=== PATIENT | male | born 1950 | race Caucasian/White ===

== ENCOUNTER 2017-05-20 17:05 | Observation (INO) | payer OTHER ==
[~2017-05-20] VITALS: Ht 175.3 cm; Wt 94.5 kg
[~2017-05-20 17:05] MED LIST: CIPR-255 PO; CLOP1TAB15 PO; EMPA1TAB3 PO; GLC500 PO; INSDGI SC; MAGN250T3 PO; RANI150T3 PO; VERA120T15 PO
--- NOTE | 2017-05-20 19:12 | DIAGNOSTIC IMAGING REPORT ---
SINGLE VIEW CHEST CLINICAL HISTORY: Atypical chest pain. Dyspnea. FINDINGS: An AP, portable, upright chest radiograph is obtained. No prior studies are available for comparison at the time of dictation. The examination is degraded by portable technique and patient rotation. The heart is top normal for projection. The pulmonary vascular is noncongested. There is left basilar consolidation and a small left pleural effusion. The right lung appears clear. No pneumothorax is seen. The skeletal structures are osteopenic. Degenerative change is noted in the thoracic spine. IMPRESSION: There is left basilar consolidation and a small left pleural effusion. The appearance is typical for pneumonia. Clinical correlation will be required and radiographic follow-up to resolution is recommended. Electronically signed by: Simone Serra M.D. 05/20/2017 7:11 PM Dictated Date/Time: 05/20/2017 7:10 PM
[2017-05-20] MEDS ORDERED: OPTIRAY 320 IV PRN (19:15)
[2017-05-20 19:22] LABS: ISTAT CREATININE 0.8 mg/dl (0.6-1.3); ISTAT IONIZED CALCIUM 1.18 mmol/l (1.12-1.32); ISTAT POTASSIUM 4.7 mEq/L (3.3-5.0)
[2017-05-20 19:37] LABS: BASO % 0.3 %; BASO ABS # 0.02 K/uL (0-0.2); EOS % 0.1 %; EOS ABS # 0.01 K/uL (0-0.5); HEMATOCRIT 49.3 % (42-52); HEMOGLOBIN 16.5 g/dL (14.0-18.0); IG# 0.04 K/uL (0.00-0.02); LYMPH % 13.3 %; LYMPH ABS # 0.99 K/uL (1.2-3.4); MEAN CELL VOLUME 82.7 fL (80-100); MEAN CORPUSCULAR HEMOGLOBIN 27.7 pg (25-34); MEAN CORPUSCULAR HGB CONC 33.5 g/dl (32-36); MEAN PLATELET VOLUME 10.6 fL (7.4-10.4); MONO % 1.3 %; NEUT % 84.5 %; NEUT ABS # 6.26 K/uL (1.4-6.5); PLATELET COUNT 182 K/uL (130-400); RED CELL DISTRIBUTION WIDTH CV 14.4 % (11.5-14.5); RED CELL DISTRIBUTION WIDTH SD 43.6 fL (36.4-46.3); WHITE BLOOD COUNT 7.42 K/uL (4.8-10.8)
[2017-05-20] MEDS ORDERED: EMPA1TAB PO (19:38)
[2017-05-20] MEDS ORDERED: RANI150T2 PO (19:38)
[2017-05-20] MEDS ORDERED: METF-384 PO (19:38)
[2017-05-20] MEDS ORDERED: RBX500 PO (19:39)
[2017-05-20] MEDS ORDERED: HYDR-5688 PO (19:41)
[2017-05-20 19:44] LABS: BLOOD UREA NITROGEN 23 mg/dl (7-18); CALCIUM 9.1 mg/dl (8.5-10.1); CARBON DIOXIDE 25 mmol/L (21-32); GLUCOSE 278 mg/dl (70-99); POTASSIUM 4.6 mmol/L (3.5-5.1); SODIUM 134 mmol/L (136-145)
[2017-05-20 19:47] LABS: PTT PATIENT 27.5 SECONDS (21.0-31.0)
--- NOTE | 2017-05-20 20:18 | DIAGNOSTIC IMAGING REPORT ---
CT ANGIOGRAM OF THE CHEST CLINICAL HISTORY: Dyspnea. Reported history of recent shoulder surgery. COMPARISON STUDY: Chest x-ray dated 05/20/2017. TECHNIQUE: Following the IV administration of 90 cc of Optiray 320, CT angiogram of the chest was performed from the upper abdomen to the thoracic inlet utilizing the pulmonary embolus protocol. Images are reviewed in the axial, sagittal, and coronal planes. 3-D MIPS images are created and assessed. IV contrast was administered without complication. A dose lowering technique was utilized adhering to the principles of ALARA. The examination is degraded by motion artifact, as well as by streak artifact from the left arm which could not be elevated above the chest. CT DOSE: 639.99 mGy.cm FINDINGS: Thyroid: Imaged portions of the thyroid gland are normal in size and attenuation. Thoracic aorta: The thoracic aorta is normal in caliber and demonstrates bovine variant arch anatomy. No dissection is seen. Pulmonary vasculature: The pulmonary trunk is normal in caliber. There are no filling defects identified in main, lobar, or segmental pulmonary branches to suggest pulmonary embolus. Heart: The heart is enlarged and without pericardial effusion. The coronary arteries are densely calcified. Lungs and pleural spaces: There is dense airspace consolidation evaluation of the lung parenchyma is modestly degraded by motion artifact. Volume loss is seen at the left lung base. Linear atelectasis is present the right lung base. Mediastinum: There is no mediastinal lymphadenopathy. Paige: Clear. Axillae: There is no axillary lymphadenopathy. Upper abdomen: The liver is steatotic. A small hiatal hernia is identified. Skeletal structures: The skeletal structures are osteopenic. Degenerative change and hyperkyphosis are noted in the thoracic spine. Arthritic change is seen in the shoulders. Foci of subcutaneous gas and soft tissue swelling is present overlying the left shoulder, and likely related to recent surgery. No lytic or blastic bony lesions are seen. IMPRESSION: 1. There is no evidence of pulmonary embolus in the main, lobar, or segmental pulmonary arteries. 2. There is volume loss and dense consolidative change identified at the left lung base. This likely represents segmental atelectasis. Superimposed pneumonia is not excluded. Clinical correlation will be required. 3. Cardiomegaly. 4. Soft tissue induration and foci of subcutaneous gas are identified around the left shoulder, and likely related to the reported history of recent surgery. Clinical correlation will be required. 5. Hepatic steatosis. Electronically signed by: Simone Serra M.D. 05/20/2017 8:17 PM Dictated Date/Time: 05/20/2017 8:11 PM
[2017-05-20] MEDS ORDERED: CEFTRIAXONE SOD INJ 1 GM ADDVIAL IV STA (20:40)
[2017-05-20] MEDS ORDERED: METHOCARBAMOL 500 MG TAB PO PRN (20:45)
[2017-05-20] MEDS ORDERED: MAGNESIUM OXIDE 400 MG TAB PO PRN (20:45)
--- NOTE | 2017-05-20 20:45 | EMERGENCY ROOM VISIT NOTE ---
History Report prepared by Gera: Jovana Unger Under the Supervision of: Dr. Buddy Fowler M.D. First contact with patient: 18:11 Chief Complaint: RESPIRATORY PROBLEMS Stated Complaint: S/P L ROTATOR CUFF SURGERY,DIFFICULTY BREATHING- Nursing Triage Summary: Patient states "I had outpatient surgery on my left rotator cuff. I just can't catch my breath. Whatever they gave me did this to me." Denies chest pain. History of Present Illness The patient is a 66 year old male who presents to the Emergency Room with complaints of persistent SOB starting this morning. The patient had debridement of the articular side of his left cuff tear at 1100 this morning. The patient was given morphine after which he started feeling SOB. States he went to an outside medical facility and then was discharged because his shortness of breath resolved. He feels he cannot catch his breath now when he lies down. He has some pain in his left chest, but he is not sure if this is due to his surgery today. He has a history of ND and 3 stents. Source of History: patient Onset: this morning Position: other (global) Quality: other (SOB) Timing: other (persistent) Modifying Factors (Worsening): other (lying down) Associated Symptoms: + chest pain Review of Systems See HPI for pertinent positives and negatives. A total of ten systems were reviewed and were otherwise negative. Past Medical & Surgical Medical Problems: (1) Diabetes (2) Enlarged prostate (3) HTN (hypertension) (4) UTI (urinary tract infection) Family History Diabetes mellitus Heart disease Hypertension Lung disease Social History Smoking Status: Never Smoker Marital Status: Current/Historical Medications Scheduled Carvedilol (Carvedilol), 3.125 MG PO BID Empagliflozin (Jardiance), 10 MG PO DAILY Loperamide Hcl (Imodium), 2 MG PO DAILY Metformin Hcl (Glucophage), 1,000 MG PO BID Pantoprazole Sodium (Protonix), 40 MG PO BID Ranitidine HCl (Ranitidine HCl), 150 MG PO BID Simvastatin (Zocor), 10 MG PO DAILY Tamsulosin Hcl (Flomax), 0.4 MG PO DAILY Verapamil (Calan), 120 MG PO DAILY Scheduled PRN Hydrocodone/Acetaminophen 5MG/325MG (Arnold 5MG/325MG), 1 TABLET PO Q4-6HRS PRN for Pain Magnesium (Magnesium 250 mg), 500 MG PO DAILY PRN for LOW MAG Methocarbamol (Methocarbamol), 500 MG PO TID PRN for Muscle Spasms Allergies Coded Allergies: Horse Serum Proteins (Verified Allergy, Mild, HARD TIME BREATHING, 05/20/17 ) Iodine (Verified Allergy, Mild, BLISTERS, 05/20/17) Molds & Smuts (Verified Allergy, Mild, ASHTMA, 05/20/17) Pecan (Verified Allergy, Mild, TONGUE SWELLS, 05/20/17) Poison Candealria Extract/Poison Hooper Extra (Verified Allergy, Mild, RASH, 05/20/17 ) Potato (Verified Allergy, Mild, PRICKLY FEELING ON TONGUE, 05/20/17) Eads (Verified Allergy, Mild, TONGUE SWELLS, 05/20/17) Morphine (Verified Adverse Reaction, Intermediate, SHORTNESS OF BREATH, ) Uncoded Allergies: NIGHTSHADE (Allergy, Mild, BLISTERS, 02/02/15) *PLANT* PEANUTS (Allergy, Mild, PRICKLY FEELING ON TONGUE, 02/02/15) Physical Exam Vital Signs Date Time Temp Pulse Resp B/P (MAP) Pulse Ox O2 Delivery O2 Flow Rate FiO2 05/20/17 20:53 72 18 142/80 99 Room Air 05/20/17 19:18 70 05/20/17 19:00 69 16 144/86 95 Room Air 05/20/17 18:59 Room Air 05/20/17 18:59 95 Room Air 05/20/17 17:14 96 Room Air 05/20/17 17:09 36.8 73 18 165/95 96 Room Air Physical Exam Physical Exam GENERAL: He is oriented to person, place, and time. He appears well-developed and well-nourished. He does not appear distressed. ____ HENT: Exam performed. Head: Normocephalic and atraumatic. Right Ear: External ear normal. No mastoid tenderness. Left Ear: External ear normal. No mastoid tenderness. Mouth/Throat: The oropharynx is clear and moist. No trismus in the jaw. No dental abscesses or uvula swelling. No oropharyngeal exudate or tonsillar abscesses. ____ EYES: Conjunctivae and EOM are normal. Pupils are equal, round, and reactive to light. Right eye exhibits no discharge. Left eye exhibits no discharge. No scleral icterus. ____ NECK: Normal range of motion. Neck supple. No JVD present. No spinous process tenderness present. No carotid bruit present. No rigidity. No tracheal deviation and normal range of motion present. No Brudzinski's sign and no Kernig 's sign noted. ____ CV: Normal rate, regular rhythm, normal heart sounds and intact distal pulses. There is no peripheral edema. Palpable radial pulses bue. ____ PULM/CHEST: Effort normal. Diminished breath sounds on the left. No respiratory distress. No stridor. He has no wheezes. He has no rales. Chest Wall: He exhibits no tenderness. ____ ABD: The abdomen is soft. Bowel sounds are normal. He has no distension. No mass is present. There is no tenderness. There is no rebound, no guarding, no Elder's sign and no tenderness at McBurney's point. Rovsig negative MUSC/SKEL: Left shoulder surgical incision was clean without any drainage, bleeding, or purulent discharge. There was no surrounding erythema. LYMPH: No cervical adenopathy. ____ NEURO: He is alert and oriented to person, place, and time. He has normal strength. No cranial nerve deficit or sensory deficit. Coordination and gait normal. GCS eye subscore is 4. GCS verbal subscore is 5. GCS motor subscore is 6. cerbellar tests wnl. ____ SKIN: Skin is warm and dry. He is not diaphoretic. ____ PSYCH: He has a normal mood and affect. His behavior is normal. Judgment and thought content normal. ____ Medical Decision & Procedures ER Provider Diagnostic Interpretation: Xray results as stated below per my and radiologist interpretation. Radiology results as stated below per my review and radiologist interpretation: SINGLE VIEW CHEST CLINICAL HISTORY: Atypical chest pain. Dyspnea. FINDINGS: An AP, portable, upright chest radiograph is obtained. No prior studies are available for comparison at the time of dictation. The examination is degraded by portable technique and patient rotation. The heart is top normal for projection. The pulmonary vascular is noncongested. There is left basilar consolidation and a small left pleural effusion. The right lung appears clear. No pneumothorax is seen. The skeletal structures are osteopenic. Degenerative change is noted in the thoracic spine. IMPRESSION: There is left basilar consolidation and a small left pleural effusion. The appearance is typical for pneumonia. Clinical correlation will be required and radiographic follow-up to resolution is recommended. Electronically signed by: Simone Serra M.D. 05/20/2017 7:11 PM Dictated Date/Time: 05/20/2017 7:[address] ANGIOGRAM OF THE CHEST CLINICAL HISTORY: Dyspnea. Reported history of recent shoulder surgery. COMPARISON STUDY: Chest x-ray dated 05/20/2017. TECHNIQUE: Following the IV administration of 90 cc of Optiray 320, CT angiogram of the chest was performed from the upper abdomen to the thoracic inlet utilizing the pulmonary embolus protocol. Images are reviewed in the axial, sagittal, and coronal planes. 3-D MIPS images are created and assessed. IV contrast was administered without complication. A dose lowering technique was utilized adhering to the principles of ALARA. The examination is degraded by motion artifact, as well as by streak artifact from the left arm which could not be elevated above the chest. CT DOSE: 639.99 mGy.cm FINDINGS: Thyroid: Imaged portions of the thyroid gland are normal in size and attenuation. Thoracic aorta: The thoracic aorta is normal in caliber and demonstrates bovine variant arch anatomy. No dissection is seen. Pulmonary vasculature: The pulmonary trunk is normal in caliber. There are no filling defects identified in main, lobar, or segmental pulmonary branches to suggest pulmonary embolus. Heart: The heart is enlarged and without pericardial effusion. The coronary arteries are densely calcified. Lungs and pleural spaces: There is dense airspace consolidation evaluation of the lung parenchyma is modestly degraded by motion artifact. Volume loss is seen at the left lung base. Linear atelectasis is present the right lung base. Mediastinum: There is no mediastinal lymphadenopathy. Paige: Clear. Axillae: There is no axillary lymphadenopathy. Upper abdomen: The liver is steatotic. A small hiatal hernia is identified. Skeletal structures: The skeletal structures are osteopenic. Degenerative change and hyperkyphosis are noted in the thoracic spine. Arthritic change is seen in the shoulders. Foci of subcutaneous gas and soft tissue swelling is present overlying the left shoulder, and likely related to recent surgery. No lytic or blastic bony lesions are seen. IMPRESSION: 1. There is no evidence of pulmonary embolus in the main, lobar, or segmental pulmonary arteries. 2. There is volume loss and dense consolidative change identified at the left lung base. This likely represents segmental atelectasis. Superimposed pneumonia is not excluded. Clinical correlation will be required. 3. Cardiomegaly. 4. Soft tissue induration and foci of subcutaneous gas are identified around the left shoulder, and likely related to the reported history of recent surgery. Clinical correlation will be required. 5. Hepatic steatosis. Electronically signed by: Simone Serra M.D. 05/20/2017 8:17 PM Dictated Date/Time: 05/20/2017 8:11 PM Laboratory Results 05/20/17 19:00 Red Blood Count 5.96, Mean Corpuscular Volume 82.7, Mean Corpuscular Hemoglobin 27.7, Mean Corpuscular Hemoglobin Concent 33.5, Mean Platelet Volume 10.6, Neutrophils (%) (Auto) 84.5, Lymphocytes (%) (Auto) 13.3, Monocytes (%) (Auto) 1.3, Eosinophils (%) (Auto) 0.1, Basophils (%) (Auto) 0.3, Neutrophils # (Auto) 6.26, Lymphocytes # (Auto) 0.99, Monocytes # (Auto) 0.10, Eosinophils # (Auto) 0.01, Basophils # (Auto) 0.02 05/20/17 19:00 Test 05/20/17 19:00 05/20/17 19:11 White Blood Count 7.42 K/uL (4.8-10.8) Red Blood Count 5.96 M/uL (4.7-6.1) Hemoglobin 16.5 g/dL (14.0-18.0) Hematocrit 49.3 % (42-52) Mean Corpuscular Volume 82.7 fL (80-100) Mean Corpuscular Hemoglobin 27.7 pg (25-34) Mean Corpuscular Hemoglobin Concent 33.5 g/dl (32-36) Platelet Count 182 K/uL (130-400) Mean Platelet Volume 10.6 fL (7.4-10.4) Neutrophils (%) (Auto) 84.5 % Lymphocytes (%) (Auto) 13.3 % Monocytes (%) (Auto) 1.3 % Eosinophils (%) (Auto) 0.1 % Basophils (%) (Auto) 0.3 % Neutrophils # (Auto) 6.26 K/uL (1.4-6.5) Lymphocytes # (Auto) 0.99 K/uL (1.2-3.4) Monocytes # (Auto) 0.10 K/uL (0.11-0.59) Eosinophils # (Auto) 0.01 K/uL (0-0.5) Basophils # (Auto) 0.02 K/uL (0-0.2) RDW Standard Deviation 43.6 fL (36.4-46.3) RDW Coefficient of Variation 14.4 % (11.5-14.5) Immature Granulocyte % (Auto) 0.5 % Immature Granulocyte # (Auto) 0.04 K/uL (0.00-0.02) Prothrombin Time 10.5 SECONDS (9.0-12.0) Prothromb Time International Ratio 1.0 (0.9-1.1) Activated Partial Thromboplast Time 27.5 SECONDS (21.0-31.0) Partial Thromboplastin Ratio 1.1 Est Creatinine Clear Calc Drug Dose 77.5 ml/min Estimated GFR () 81.8 Estimated GFR (Non- 70.6 BUN/Creatinine Ratio 20.8 (10-20) Calcium Level 9.1 mg/dl (8.5-10.1) Troponin I < 0.015 ng/ml (0-0.045) Bedside Hemoglobin 18.0 g/dl (14.0-18.0) Bedside Hematocrit 53 % (42-52) Bedside Sodium 138 mEq/L (135-144) Bedside Potassium 4.7 mEq/L (3.3-5.0) Bedside Chloride 100 mEq/L (101-112) Bedside Total CO2 23 mEq/l (24-31) Anion Gap 20.0 mmol/L (16-25) Bedside Blood Urea Nitrogen 27 mg/dl (7-18) Bedside Creatinine 0.8 mg/dl (0.6-1.3) Bedside Glucose (other) 294 mg/dl (70-99) Bedside Ionized Calcium (Xiao) 1.18 mmol/l (1.12-1.32) Laboratory results reviewed by me Medications Administered Medications (Trade) Dose Ordered Sig/Jamal Route Start Time Stop Time Status Last Admin Dose Admin Ceftriaxone Sodium (Rocephin Inj) 1 gm NOW STAT IV 05/20/17 20:40 05/20/17 21:05 DC 05/20/17 21:18 1 GM Azithromycin (Zithromax Tab) 500 mg NOW STAT PO 05/20/17 21:02 05/20/17 21:03 DC 05/20/17 21:18 500 MG ECG Indication: SOB/dyspnea Rate (beats per minute): 65 Rhythm: sinus rhythm Findings: Q waves (lead 3), T-wave inversion (lead 3), no ectopy, other (LA, QRS, QTc within normal limits, S waves in lead 1) Comparison ECG Date: no prior available Change: Patient's electrocardiogram was interpreted by me. ED Course 1820: The patient was evaluated in room C1B. A complete history and physical exam was performed. 1829: I discussed the patient's case with Dr. Moore, [facility] orthopedic surgery. He is in agreement with the plan. 1839: I reevaluated the patient. Dressing was removed per recommendation of the orthopod automation test developer. Incision was clean without any drainage, bleeding, or purulent discharge. There was no surrounding erythema. Dressing was replaced and the patient placed back in the immobilizer. 2035: I discussed the patient's case with Dr. Correa, [place] [facility]ist. The patient will be evaluated for further treatment and disposition. She states that given the possible pneumonia she recommends starting antibiotic treatment. Blood cultures will be sent. Given that the procedure was done as an outpatient , he will be treated for community acquired pneumonia. 2038: I reevaluated the patient. The patient was stable. I discussed the test results and treatment plan with him. The patient verbalized agreement of the treatment plan. The patient will be evaluated for further management. 2044: Azithromycin Tab 500 mg PO, Ceftriaxone Sod Inj 1 gm IV. Medical Decision Vital signs stable. Labs within normal limits. EKG shows no ischemic changes, S1Q3T3 morphology present. CTA of the chest did not show ulnar embolus him. There is atelectasis versus pneumonia on the CTA.. I discussed the patient's case with Dr. Correa, [place] [facility]ist. The patient will be evaluated for further treatment and disposition. She states that given the possible pneumonia she recommends starting antibiotic treatment. Blood cultures will be sent. Given that the procedure was done as an outpatient and he has no other risk factors for healthcare associated pneumonia, he will be treated for community acquired pneumonia with Rocephin and azithromycin. Medication Reconcilliation Current Medication List: was personally reviewed by me Blood Pressure Screening Patient's blood pressure: Elevated blood pressure Blood pressure disposition: Elevated BP felt to be situational Consults Time Called: 1826 Consulting Physician: Dr. Moore, [facility] orthopedic surgery Returned Call: 1829 I discussed the patient's case with him. He states it is okay to remove the dressing and evaluate the surgical sites. Additional Consults: Time Called: 2033 Consulted Physician: Dr. Correa [facility] hospitalist Returned Call: 2035 Additional Comments: Discussed the patient's case. The patient will be evaluated for further treatment and disposition. Impression Primary Impression: Pneumonia Additional Impressions: Chest pain Post-operative complication Scribe Attestation The scribe's documentation has been prepared under my direction and personally reviewed by me in its entirety. I confirm that the note above accurately reflects all work, treatment, procedures, and medical decision making performed by me. The chart was completed utilizing [employer] Speech voice recognition software. Grammatical errors, random word insertions, pronoun errors, and incomplete sentences are an occasional consequence of this system due to software limitations, ambient noise, and hardware issues. Any formal questions or concerns about the content, text, or information contained within the body of this dictation should be directly addressed to the physician for clarification. Departure Information Dispostion Being Evaluated By Hospitalist Referrals Natalio Dior M.D. (PCP) Patient Instructions My [facility] Problem Qualifiers
--- NOTE | 2017-05-20 20:50 | History and Physical ---
History & Physical Date & Time of Service: May 20, 2017 at 20:50 Chief Complaint: S/P L Rotator Cuff Surgery,Difficulty Breathing- Primary Care Physician: Natalio Dior M.D. History of Present Illness Source: patient this is a 66 yo M with past medical hx of CAD s/p PTCA x2 ( October 2005 , November 2005 ) , NSTEMI in Feb 2016 had stent placement -all of them are done at [facility] follows with Cardiology Dr Muñoz pt;s other medical problems includes Type 2 DM , HTN , Hyperlipidemia , Lockett' s esophagitis Pt sustained injury to left shoulder on May 05 2017 after a fall , seen by [facility] underwent Left shoulder rotator cuff repair today by Dr Pozo in office , pt mentions the procedure was for approx 45 mins, did well at post op recovery was discharged after arriving home approx 1:30 pm -developed sudden onset of SOB , unable to take deep breath , symptom worse with lying flat felt dizzy and lightheaded , no syncope , mentions had sharp pain on left chest wall but thinks possible radiation form left shoulder surgical pain on Arrival to ER -pt had stable vitals, adequate oxygenation in room air CTA of chest -shows no evidence of PE , There is volume loss and dense consolidative change identified at the left lung base. pt denies of any fever or chills, no cough , no headache or body ache had no episode of SOB /RAINEY until today afternoon during my evaluation in ER -pt appears to be comfortable , no respiratory distress noted no chest pain still have subjective feeling of unable to take deep breath , positive orthopnea Past Medical/Surgical History Medical Problems: (1) Diabetes Status: Chronic (2) Enlarged prostate Status: Chronic (3) HTN (hypertension) Status: Chronic (4) UTI (urinary tract infection) Status: Resolved Family History Diabetes mellitus Heart disease Hypertension Lung disease Social History Smoking Status: Never Smoker Marital Status: Allergies Coded Allergies: Horse Serum Proteins (Verified Allergy, Mild, HARD TIME BREATHING, 05/20/17 ) Iodine (Verified Allergy, Mild, BLISTERS, 05/20/17) Molds & Smuts (Verified Allergy, Mild, ASHTMA, 05/20/17) Pecan (Verified Allergy, Mild, TONGUE SWELLS, 05/20/17) Poison Candelaria Extract/Poison [place] Extra (Verified Allergy, Mild, RASH, 05/20/17 ) Potato (Verified Allergy, Mild, PRICKLY FEELING ON TONGUE, 05/20/17) [place] (Verified Allergy, Mild, TONGUE SWELLS, 05/20/17) Morphine (Verified Adverse Reaction, Intermediate, SHORTNESS OF BREATH, ) Uncoded Allergies: NIGHTSHADE (Allergy, Mild, BLISTERS, 02/02/15) *PLANT* PEANUTS (Allergy, Mild, PRICKLY FEELING ON TONGUE, 02/02/15) Home Medications Scheduled Carvedilol (Carvedilol), 3.125 MG PO BID Empagliflozin (Jardiance), 10 MG PO DAILY Loperamide Hcl (Imodium), 2 MG PO DAILY Metformin Hcl (Glucophage), 1,000 MG PO BID Pantoprazole Sodium (Protonix), 40 MG PO BID Ranitidine HCl (Ranitidine HCl), 150 MG PO BID Simvastatin (Zocor), 10 MG PO DAILY Tamsulosin Hcl (Flomax), 0.4 MG PO DAILY Verapamil (Calan), 120 MG PO DAILY Scheduled PRN Hydrocodone/Acetaminophen 5MG/325MG (Marion 5MG/325MG), 1 TABLET PO Q4-6HRS PRN for Pain Magnesium (Magnesium 250 mg), 500 MG PO DAILY PRN for LOW MAG Methocarbamol (Methocarbamol), 500 MG PO TID PRN for Muscle Spasms Review of Systems Constitutional: No fever, No chills, No sweats, No weight loss, No weakness, No fatigue, No problem reported Eyes: No worsening of vision, No eye pain, No redness, No discharge, No diplopia, No problem reported ENT: No hearing loss, No unusual epistaxis, No nasal symptoms, No sore throat, No tinnitus, No dental problems, No trouble swallowing, No problem reported Respiratory: + shortness of breath, No cough, No sputum, No wheezing, No dyspnea on exertion, No dyspnea at rest, No hemoptysis, No problem reported Cardiovascular: + chest pain, + orthopnea Abdomen: No pain, No nausea, No vomiting, No diarrhea, No constipation, No GI bleeding, No problem reported Musculoskeletal: + problem reported (s/p left shoulder rotator cuff repair today ) Neurologic: No memory loss, No paralysis, No weakness, No numbness/tingling, No vertigo, No balance problems, No problem reported Psychiatric: No depression symptoms, No anhedonism, No anxiety, No insomnia, No substance abuse, No problem reported Endocrine: No fatigue, No excessive thirst, No excessive urination, No problem reported Physical Exam Vital Signs Date Time Temp Pulse Resp B/P (MAP) Pulse Ox O2 Delivery O2 Flow Rate FiO2 05/20/17 19:18 70 05/20/17 19:00 69 16 144/86 95 Room Air 05/20/17 18:59 Room Air 05/20/17 18:59 95 Room Air 05/20/17 17:14 96 Room Air 05/20/17 17:09 36.8 73 18 165/95 96 Room Air General Appearance: no apparent distress Head: normocephalic, atraumatic Eyes: normal inspection ENT: normal ENT inspection Neck: thyroid normal, no JVD, no carotid bruits, trachea midline Respiratory/Chest: chest non-tender, lungs clear, + decreased breath sounds ( poor inspiratory effort , no wheeze or rales ) Cardiovascular: regular rate, rhythm, no edema Abdomen/GI: normal bowel sounds, non tender, soft Extremities/Musculoskelatal: normal inspection, normal capillary refill, no pedal edema, + pertinent finding (left shoulder in bandage and wrap for recent arm surgery , on arm sling ) Neurologic/Psych: no motor/sensory deficits, alert, normal mood/affect, oriented x 3 Diagnostics Laboratory Results Results Past 24 Hours Test 05/20/17 19:00 05/20/17 19:11 Range/Units White Blood Count 7.42 4.8-10.8 K/uL Red Blood Count 5.96 4.7-6.1 M/uL Hemoglobin 16.5 14.0-18.0 g/dL Hematocrit 49.3 42-52 % Mean Corpuscular Volume 82.7 80-100 fL Mean Corpuscular Hemoglobin 27.7 25-34 pg Mean Corpuscular Hemoglobin Concent 33.5 32-36 g/dl Platelet Count 182 130-400 K/uL Mean Platelet Volume 10.6 7.4-10.4 fL Neutrophils (%) (Auto) 84.5 % Lymphocytes (%) (Auto) 13.3 % Monocytes (%) (Auto) 1.3 % Eosinophils (%) (Auto) 0.1 % Basophils (%) (Auto) 0.3 % Neutrophils # (Auto) 6.26 1.4-6.5 K/uL Lymphocytes # (Auto) 0.99 1.2-3.4 K/uL Monocytes # (Auto) 0.10 0.11-0.59 K/uL Eosinophils # (Auto) 0.01 0-0.5 K/uL Basophils # (Auto) 0.02 0-0.2 K/uL RDW Standard Deviation 43.6 36.4-46.3 fL RDW Coefficient of Variation 14.4 11.5-14.5 % Immature Granulocyte % (Auto) 0.5 % Immature Granulocyte # (Auto) 0.04 0.00-0.02 K/uL Prothrombin Time 10.5 9.0-12.0 SECONDS Prothromb Time International Ratio 1.0 0.9-1.1 Activated Partial Thromboplast Time 27.5 21.0-31.0 SECONDS Partial Thromboplastin Ratio 1.1 Sodium Level 134 136-145 mmol/L Potassium Level 4.6 3.5-5.1 mmol/L Chloride Level 101 98-107 mmol/L Carbon Dioxide Level 25 21-32 mmol/L Anion Gap 8.0 20.0 16-25 mmol/L Blood Urea Nitrogen 23 7-18 mg/dl Creatinine 1.10 0.60-1.40 mg/dl Est Creatinine Clear Calc Drug Dose 77.5 ml/min Estimated GFR () 81.8 Estimated GFR (Non- 70.6 BUN/Creatinine Ratio 20.8 10-20 Random Glucose 278 70-99 mg/dl Calcium Level 9.1 8.5-10.1 mg/dl Troponin I < 0.015 0-0.045 ng/ml Bedside Hemoglobin 18.0 14.0-18.0 g/dl Bedside Hematocrit 53 42-52 % Bedside Sodium 138 135-144 mEq/L Bedside Potassium 4.7 3.3-5.0 mEq/L Bedside Chloride 100 101-112 mEq/L Bedside Total CO2 23 24-31 mEq/l Bedside Blood Urea Nitrogen 27 7-18 mg/dl Bedside Creatinine 0.8 0.6-1.3 mg/dl Bedside Glucose (other) 294 70-99 mg/dl Bedside Ionized Calcium (Xiao) 1.18 1.12-1.32 mmol/l Microbiology Results 05/20/17 Blood Culture, Ordered Pending 05/20/17 Blood Culture, Ordered Pending Diagnostic Radiology CT CHEST WITH CONTRAST : IMPRESSION: 1. There is no evidence of pulmonary embolus in the main, lobar, or segmental pulmonary arteries. 2. There is volume loss and dense consolidative change identified at the left lung base. This likely represents segmental atelectasis. Superimposed pneumonia is not excluded. Clinical correlation will be required. 3. Cardiomegaly. 4. Soft tissue induration and foci of subcutaneous gas are identified around the left shoulder, and likely related to the reported history of recent surgery. Clinical correlation will be required. 5. Hepatic steatosis. CHEST XRAY : IMPRESSION: There is left basilar consolidation and a small left pleural effusion. The appearance is typical for pneumonia. Clinical correlation will be required and radiographic follow-up to resolution is recommended. EKG Vent. rate 65 BPM UT interval 160 ms QRS duration 112 ms QT/QTc 408/424 ms P-R-T axes 35 58 13 Normal sinus rhythm Possible Left atrial enlargement Inferior infarct , age undetermined Abnormal ECG No previous ECGs available Impression Assessment and Plan SOB /LEFT LOWER LOBE PNEUMONIA/DENSE CONSOLIDATION : presents with sudden onset of SOB /Orthopnea after having out pt Orthopedics procedure today CTA chest -CTA of chest -shows no evidence of PE , There is volume loss and dense consolidative change identified at the left lung base. pt does not have any typical symptom of fever , cough , white count normal possible CAP vs Mucus plug causing sudden SOB Pulmonology eval requested empiric Abx with Rocephin /Zithromax ordered for blood and sputum culture RECENT ROTATOR CUFF REPAIR SURGERY : POD # 0 no active infection noted at the surgical site ortho eval requested for follow up TYPE 2 DM /HYPERGLYCEMIA : BSG elevated > 250 not sure if steroid given during the procedure /vs reactive hyperglycemia due to infection /acute illness will hold home medication of Metformin ( pt got contrast study with CTA chest ) ordered for insulin SSI , basal [facility] consulted for glycemic management CORONARY ARTERY DISEASE : hx of CAD s/p PTCA x2 ( October 2005 , November 2005 ) , NSTEMI in Feb 2016 had stent placement -all of them are done at [facility] follows with Cardiology Dr Muñoz medial record requested Pt taken off Plavix on Feb 2017 , on Aspirin 81 mg daily -continued reports of chest pain , Orthopnea , SOB doubt ACS, EKG NSR , no ST-T wave changes monitor in Tele ,resting ECHO , serial troponin ordered LOCKETT'S ESOPHAGITIS cont PPI and Ranidine 150 mg BID HTN : BP stable cont out pt med HYPERLIPIDEMIA : on statin FULL CODE DVT PROPHYLAXIS : sub q heparin DISPOSITION : Expected to be discharged home when medically stable Medicine follow up with Dr Dior in [place] Level of Care Telemetry Resuscitation Status FULL RESUSCITATION VTE Prophylaxis VTE Risk Assessment Done? Y/N: Yes Risk Level: Moderate Given or contraindicated: Unfractionated heparin SQ
[2017-05-20] MEDS ORDERED: DEXTROSE 50% 50 ML SYR IV PRN (21:00)
[2017-05-20] MEDS ORDERED: MAGNESIUM HYDROXIDE SUSP 30 ML UDC PO PRN (21:00)
[2017-05-20] MEDS ORDERED: ACETAMINOPHEN 325 MG TAB PO PRN (21:00)
[2017-05-20] MEDS ORDERED: ONDANSETRON INJ 2 MG/ML 2 ML VIAL IV PRN (21:00)
[2017-05-20] MEDS ORDERED: GLUCAGON FOR INJ 1 MG VIAL SQ PRN (21:00)
[2017-05-20] MEDS ORDERED: NITROGLYCERIN 0.4 MG SL PER TAB CHARGE SL PRN (21:00)
[2017-05-20] MEDS ORDERED: POLYETHYLENE (MIRALAX) 17 GM PACK PO PRN (21:00)
[2017-05-20] MEDS ORDERED: GLUCOSE 40% GEL 15 GM TUBE PO PRN (21:00)
[2017-05-20] MEDS ORDERED: GLUCOSE 10 TABS/TUBE PO PRN (21:00)
[2017-05-20] MEDS ORDERED: ALUMINUM/MAGNESIUM/SIMETH (MAALOX MAX) 30 ML UDC PO PRN (21:00)
[2017-05-20] MEDS ORDERED: AZITHROMYCIN 250 MG TAB PO STA (21:02)
[2017-05-20] MEDS ORDERED: TAMS0.4C38 PO (21:04)
[2017-05-20] MEDS ORDERED: CRG3125 PO (21:04)
[2017-05-20] MEDS ORDERED: IMD/2 PO (21:04)
[2017-05-20] MEDS ORDERED: SIMV10TA2 PO (21:04)
[2017-05-20] MEDS ORDERED: PANT40TA PO (21:04)
[2017-05-20] MEDS ORDERED: PHARMACY GLYCEMIC MGMT CONSULT PRN (21:06)
[2017-05-20] MEDS ORDERED: SODIUM CHLORIDE 0.9% 1000ML 1,000 ML IV SCH (22:00)
[2017-05-20] MEDS: HEPARIN SOD 5000 UNIT/0.5 ML CARP SQ SCH (22:00)
[2017-05-20] MEDS ORDERED: INSULIN GLARGINE SOLOSTAR 100 UNITS/ML 3 ML PEN SC STA (22:05)
[2017-05-20] MEDS ORDERED: INSULIN ASPART 100 UNITS/ML 3 ML PEN SC STA (22:07)
[2017-05-20] MEDS ORDERED: INSULIN HUMAN REGULAR PER UNIT 6 UNITS in SYRINGE 5.94 ML IV SCH (22:15)
[2017-05-20 22:19] VITALS: BP 142/87; PULSE 80; TEMP 37; BMI 31.2
[2017-05-20] MEDS: PANTOprazole SOD 40 MG TAB PO SCH (23:00)
[2017-05-20] MEDS: RANITIDINE HCL 150 MG TAB PO SCH (23:01)
[2017-05-20] MEDS: SIMVASTATIN 10 MG TAB PO SCH (23:01)
[2017-05-20] MEDS: CARVEDILOL 3.125 MG TAB PO SCH (23:01)
[2017-05-20] MEDS: TAMSULOSIN HCL 0.4 MG CAP PO SCH (23:02)
[2017-05-20] MEDS: HYDROCODONE/ACETAMOPHEN 5/325MG TAB PO PRN (23:42)
[2017-05-20] MEDS ORDERED: IV FLUIDS COMPLETED PRN (23:45)
[2017-05-21 00:32] LABS: INFLUENZA B ANTIGEN Neg for Influ B (NEG)
[2017-05-21] MEDS ORDERED: INSULIN ASPART 100 UNITS/ML 3 ML PEN SC SCH (04:00)
[2017-05-21 04:12] LABS: HEMATOCRIT 43.6 % (42-52); HEMOGLOBIN 14.4 g/dL (14.0-18.0); MEAN CELL VOLUME 82.6 fL (80-100); MEAN CORPUSCULAR HEMOGLOBIN 27.3 pg (25-34); MEAN PLATELET VOLUME 9.7 fL (7.4-10.4); PLATELET COUNT 170 K/uL (130-400); RED CELL DISTRIBUTION WIDTH CV 14.3 % (11.5-14.5); RED CELL DISTRIBUTION WIDTH SD 42.6 fL (36.4-46.3); WHITE BLOOD COUNT 9.63 K/uL (4.8-10.8)
[2017-05-21 04:36] LABS: BLOOD UREA NITROGEN 22 mg/dl (7-18); CALCIUM 8.3 mg/dl (8.5-10.1); CARBON DIOXIDE 25 mmol/L (21-32); CREATININE 0.92 mg/dl (0.60-1.40); GLUCOSE 179 mg/dl (70-99); POTASSIUM 4.1 mmol/L (3.5-5.1); SODIUM 134 mmol/L (136-145)
[2017-05-21 05:17] VITALS: BP 147/84; PULSE 66; TEMP 36.7; O2SAT 94
[2017-05-21] MEDS: HEPARIN SOD 5000 UNIT/0.5 ML CARP SQ SCH ×2 (05:37→13:51)
[2017-05-21 07:21] VITALS: BP 142/75; PULSE 66; TEMP 36.7; O2SAT 94
[2017-05-21] MEDS ORDERED: PERFLUTREN LIPID MICROSPHERE (DEFINITY) IV ONE (08:06)
[2017-05-21] MEDS: HYDROCODONE/ACETAMOPHEN 5/325MG TAB PO PRN ×2 (08:29→13:08)
[2017-05-21 08:30] VITALS: O2SAT 94
[2017-05-21] MEDS: TAMSULOSIN HCL 0.4 MG CAP PO SCH (08:30)
[2017-05-21] MEDS: SIMVASTATIN 10 MG TAB PO SCH (08:30)
[2017-05-21] MEDS: RANITIDINE HCL 150 MG TAB PO SCH (08:30)
[2017-05-21] MEDS: CARVEDILOL 3.125 MG TAB PO SCH (08:31)
[2017-05-21] MEDS: LOPERAMIDE HCL 2 MG CAP PO SCH ×2 (08:31→08:39)
[2017-05-21] MEDS ORDERED: TAMSULOSIN HCL 0.4 MG CAP PO SCH (09:00)
[2017-05-21] MEDS ORDERED: SIMVASTATIN 10 MG TAB PO SCH (09:00)
[2017-05-21] MEDS ORDERED: VERAPAMIL HCL 120 MG TABCR PO SCH (09:00)
[2017-05-21] MEDS: PANTOprazole SOD 40 MG TAB PO SCH (09:18)
[2017-05-21] MEDS: INSULIN ASPART 100 UNITS/ML 3 ML PEN SC SCH ×2 (09:19→12:44)
[2017-05-21] MEDS ORDERED: INSULIN GLARGINE SOLOSTAR 100 UNITS/ML 3 ML PEN SC SCH (09:30)
--- NOTE | 2017-05-21 10:59 | Pulmonary Consultation ---
History General Date of Service: May 21, 2017. Chief Complaint: shortness of breath Stated Complaint: Chest Pain, Pneumonia HPI The patient is a 66 year old male who presents to [facility] with complaints of Chest Pain, Pneumonia. The patient's primary care provider is Natalio Dior M.D.. The patient had a rotator cuff repair done in an outpatient ambulatory surgery Center at [facility] yesterday with Dr. Issa Pozo. He has successful procedure and denied any nausea or vomiting. He is unaware of any aspiration during the procedure. On the way home the patient had a sudden onset of pleuritic chest pain at the left lower rib and acute shortness of breath. The patient converted to the emergency department where he was seen and chest x-ray was taken which shows atelectasis versus infiltrate at the left lower lobe. The patient was admitted for further workup due to his considerable past cardiac history. The patient required no further intervention from a pulmonary standpoint other than antibiotics and bronchodilators. The patient was admitted to telemetry and since admission is oxygenating well on room air. He has no more pleuritic type pain. He has no hemoptysis. He has no sputum with cough. He has a minimal cough. He has no nausea or vomiting. Pain is generally controlled in the shoulder but he does have some pain at the incisional site. The patient has no other acute complaints at this time. Historian: patient Review of Systems A total of 12 systems was reviewed and is negative other than as listed above in the HPI All Other Symptoms All Other Systems: Reviewed and Negative Past Medical History Past Medical History: Medical Problems: (1) Diabetes (2) Enlarged prostate (3) HTN (hypertension) (4) UTI (urinary tract infection) Past Surgical History: Past surgical history: Left rotator cuff repair with Dr. 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) Allergies Coded Allergies: Horse Serum Proteins (Verified Allergy, Mild, HARD TIME BREATHING, 05/20/17 ) Iodine (Verified Allergy, Mild, BLISTERS, 05/20/17) Molds & Smuts (Verified Allergy, Mild, ASHTMA, 05/20/17) Pecan (Verified Allergy, Mild, TONGUE SWELLS, 05/20/17) Poison Candelaria Extract/Poison [place] Extra (Verified Allergy, Mild, RASH, 05/20/17 ) Potato (Verified Allergy, Mild, PRICKLY FEELING ON TONGUE, 05/20/17) [place] (Verified Allergy, Mild, TONGUE SWELLS, 05/20/17) Morphine (Verified Adverse Reaction, Intermediate, SHORTNESS OF BREATH, ) Uncoded Allergies: NIGHTSHADE (Allergy, Mild, BLISTERS, 02/02/15) *PLANT* PEANUTS (Allergy, Mild, PRICKLY FEELING ON TONGUE, 02/02/15) Current Medications Reported Home Medications Medications Dose Route/Sig Max Daily Dose Days Date Category Dose Instructions [place] 5MG/325MG (Acetaminophen/Hydrocodone Bitart) Tab 1 Tablet PO Q4-6HRS PRN 05/20/17 Reported PRN PAIN Methocarbamol 500 Mg Tab 500 Mg PO TID PRN 05/20/17 Reported Ranitidine HCl 150 Mg Tab 150 Mg PO BID 05/20/17 Reported TAKE 1 TAB @ SUPPER & 1 TAB HS Glucophage (Metformin Hcl) 1,000 Mg Tab 1,000 Mg PO BID 05/20/17 Reported Jardiance (Empagliflozin) 10 Mg Tab 10 Mg PO DAILY 05/20/17 Reported Flomax (Tamsulosin Hcl) 0.4 Mg Cap 0.4 Mg PO DAILY 02/02/15 Reported Zocor (Simvastatin) 10 Mg Tab 10 Mg PO DAILY 02/02/15 Reported Imodium (Loperamide HCl) 2 Mg Cap 2 Mg PO DAILY 02/02/15 Reported Calan (Verapamil HCl) 120 Mg Tab 120 Mg PO DAILY 02/02/15 Reported Protonix (Pantoprazole Sodium) 40 Mg Tab 40 Mg PO BID 02/02/15 Reported Magnesium 250 mg (Magnesium) 1 Tab Tab 500 Mg PO DAILY PRN 02/02/15 Reported Carvedilol 3.125 Mg Tab 3.125 Mg PO BID 02/02/15 Reported Physical Physical Exam Vital Signs: Date Time Temp Pulse Resp B/P (MAP) Pulse Ox O2 Delivery O2 Flow Rate FiO2 05/21/17 08:30 94 Room Air 05/21/17 07:21 36.7 66 16 142/75 (97) 94 Room Air 05/21/17 05:17 36.7 66 20 147/84 (105) 94 Room Air 05/21/17 04:00 Room Air 05/21/17 00:00 Room Air 05/20/17 22:19 37.0 80 18 142/87 Room Air 05/20/17 20:53 72 18 142/80 99 Room Air 05/20/17 19:18 70 05/20/17 19:00 69 16 144/86 95 Room Air 05/20/17 18:59 Room Air 05/20/17 18:59 95 Room Air 05/20/17 17:14 96 Room Air 05/20/17 17:09 36.8 73 18 165/95 96 Room Air Weight in Kilograms: 94.5 GENERAL : No acute distress. Laying in bed on entry. Able to sit on edge of bed without difficulty or lightheadedness EYES: No icterus, gaze conjugate PERRL NOSE: No evidence of epistaxis. MOUTH: No lesions or candidiasis. No deviation of tongue NECK: Supple. No carotid bruits or stridor appreciated LUNGS: Fine crackles at the left base. Otherwise, clear to auscultation bilaterally area no bronchospasm or rhonchi appreciated HEART: Regular, rate controlled. No ectopy appreciated ABDOMEN: Soft, NT, ND, BS Present EXTREMITIES: No LE edema, pedal pulses intact. Dressing dry and intact to the left shoulder. Left arm immobilized in a sling NEURO: A&OX3 Diagnostics Labs Results Past 24 Hours Test 05/20/17 19:00 05/20/17 19:11 05/20/17 23:14 05/20/17 23:25 Range/Units White Blood Count 7.42 4.8-10.8 K/uL Red Blood Count 5.96 4.7-6.1 M/uL Hemoglobin 16.5 14.0-18.0 g/dL Hematocrit 49.3 42-52 % Mean Corpuscular Volume 82.7 80-100 fL Mean Corpuscular Hemoglobin 27.7 25-34 pg Mean Corpuscular Hemoglobin Concent 33.5 32-36 g/dl Platelet Count 182 130-400 K/uL Mean Platelet Volume 10.6 7.4-10.4 fL Neutrophils (%) (Auto) 84.5 % Lymphocytes (%) (Auto) 13.3 % Monocytes (%) (Auto) 1.3 % Eosinophils (%) (Auto) 0.1 % Basophils (%) (Auto) 0.3 % Neutrophils # (Auto) 6.26 1.4-6.5 K/uL Lymphocytes # (Auto) 0.99 1.2-3.4 K/uL Monocytes # (Auto) 0.10 0.11-0.59 K/uL Eosinophils # (Auto) 0.01 0-0.5 K/uL Basophils # (Auto) 0.02 0-0.2 K/uL RDW Standard Deviation 43.6 36.4-46.3 fL RDW Coefficient of Variation 14.4 11.5-14.5 % Immature Granulocyte % (Auto) 0.5 % Immature Granulocyte # (Auto) 0.04 0.00-0.02 K/uL Prothrombin Time 10.5 9.0-12.0 SECONDS Prothromb Time International Ratio 1.0 0.9-1.1 Activated Partial Thromboplast Time 27.5 21.0-31.0 SECONDS Partial Thromboplastin Ratio 1.1 Sodium Level 134 136-145 mmol/L Potassium Level 4.6 3.5-5.1 mmol/L Chloride Level 101 98-107 mmol/L Carbon Dioxide Level 25 21-32 mmol/L Anion Gap 8.0 20.0 16-25 mmol/L Blood Urea Nitrogen 23 7-18 mg/dl Creatinine 1.10 0.60-1.40 mg/dl Est Creatinine Clear Calc Drug Dose 77.5 ml/min Estimated GFR () 81.8 Estimated GFR (Non- 70.6 BUN/Creatinine Ratio 20.8 10-20 Random Glucose 278 70-99 mg/dl Calcium Level 9.1 8.5-10.1 mg/dl Troponin I < 0.015 0-0.045 ng/ml Bedside Hemoglobin 18.0 14.0-18.0 g/dl Bedside Hematocrit 53 42-52 % Bedside Sodium 138 135-144 mEq/L Bedside Potassium 4.7 3.3-5.0 mEq/L Bedside Chloride 100 101-112 mEq/L Bedside Total CO2 23 24-31 mEq/l Bedside Blood Urea Nitrogen 27 7-18 mg/dl Bedside Creatinine 0.8 0.6-1.3 mg/dl Bedside Glucose (other) 294 70-99 mg/dl Bedside Ionized Calcium (Xiao) 1.18 1.12-1.32 mmol/l Influenza Type A Antigen Neg for Influ A NEG Influenza Type B Antigen Neg for Influ B NEG Bedside Glucose 267 70-99 mg/dl Test 05/21/17 03:52 05/21/17 04:16 05/21/17 08:52 05/21/17 09:51 Range/Units White Blood Count 9.63 4.8-10.8 K/uL Red Blood Count 5.28 4.7-6.1 M/uL Hemoglobin 14.4 14.0-18.0 g/dL Hematocrit 43.6 42-52 % Mean Corpuscular Volume 82.6 80-100 fL Mean Corpuscular Hemoglobin 27.3 25-34 pg Mean Corpuscular Hemoglobin Concent 33.0 32-36 g/dl RDW Standard Deviation 42.6 36.4-46.3 fL RDW Coefficient of Variation 14.3 11.5-14.5 % Platelet Count 170 130-400 K/uL Mean Platelet Volume 9.7 7.4-10.4 fL Sodium Level 134 136-145 mmol/L Potassium Level 4.1 3.5-5.1 mmol/L Chloride Level 102 98-107 mmol/L Carbon Dioxide Level 25 21-32 mmol/L Anion Gap 7.0 3-11 mmol/L Blood Urea Nitrogen 22 7-18 mg/dl Creatinine 0.92 0.60-1.40 mg/dl Est Creatinine Clear Calc Drug Dose 92.7 ml/min Estimated GFR () 101.5 Estimated GFR (Non- 87.6 BUN/Creatinine Ratio 23.6 10-20 Random Glucose 179 70-99 mg/dl Estimated Average Glucose 212 mg/dl Hemoglobin A1c 9.0 4.5-5.6 % Calcium Level 8.3 8.5-10.1 mg/dl Troponin I < 0.015 < 0.015 0-0.045 ng/ml Bedside Glucose 165 167 70-99 mg/dl Microbiology Results 05/20/17 Blood Culture, Received Pending 05/20/17 Blood Culture, Received Pending Diagnostic Radiology CT ANGIOGRAM OF THE CHEST CLINICAL HISTORY: Dyspnea. Reported history of recent shoulder surgery. COMPARISON STUDY: Chest x-ray dated 05/20/2017. TECHNIQUE: Following the IV administration of 90 cc of Optiray 320, CT angiogram of the chest was performed from the upper abdomen to the thoracic inlet utilizing the pulmonary embolus protocol. Images are reviewed in the axial, sagittal, and coronal planes. 3-D MIPS images are created and assessed. IV contrast was administered without complication. A dose lowering technique was utilized adhering to the principles of ALARA. The examination is degraded by motion artifact, as well as by streak artifact from the left arm which could not be elevated above the chest. CT DOSE: 639.99 mGy.cm FINDINGS: Thyroid: Imaged portions of the thyroid gland are normal in size and attenuation. Thoracic aorta: The thoracic aorta is normal in caliber and demonstrates bovine variant arch anatomy. No dissection is seen. Pulmonary vasculature: The pulmonary trunk is normal in caliber. There are no filling defects identified in main, lobar, or segmental pulmonary branches to suggest pulmonary embolus. Heart: The heart is enlarged and without pericardial effusion. The coronary arteries are densely calcified. Lungs and pleural spaces: There is dense airspace consolidation evaluation of the lung parenchyma is modestly degraded by motion artifact. Volume loss is seen at the left lung base. Linear atelectasis is present the right lung base. Mediastinum: There is no mediastinal lymphadenopathy. Paige: Clear. Axillae: There is no axillary lymphadenopathy. Upper abdomen: The liver is steatotic. A small hiatal hernia is identified. Skeletal structures: The skeletal structures are osteopenic. Degenerative change and hyperkyphosis are noted in the thoracic spine. Arthritic change is seen in the shoulders. Foci of subcutaneous gas and soft tissue swelling is present overlying the left shoulder, and likely related to recent surgery. No lytic or blastic bony lesions are seen. IMPRESSION: 1. There is no evidence of pulmonary embolus in the main, lobar, or segmental pulmonary arteries. 2. There is volume loss and dense consolidative change identified at the left lung base. This likely represents segmental atelectasis. Superimposed pneumonia is not excluded. Clinical correlation will be required. 3. Cardiomegaly. 4. Soft tissue induration and foci of subcutaneous gas are identified around the left shoulder, and likely related to the reported history of recent surgery. Clinical correlation will be required. 5. Hepatic steatosis. Electronically signed by: Simone Serra M.D. 05/20/2017 8:17 PM Impression Assessment and Plan DYSPNEA * CTA shows no evidence of pulmonary emboli * There is evidence of segmental and subsegmental atelectasis at left base with probable superimposed infiltrate * Would treat for aspiration pneumonia 7 days and stop * If no new symptoms, no indication for repeat chest x-ray for clearance * If patient does have increased symptoms on discharge with refer back to primary care for follow-up chest x-ray * Patient currently asymptomatic and oxygenating well on room air * Treat supportively ROTATOR CUFF REPAIR ON THE LEFT * Outpatient procedure and an ambulatory surgical Center 05/20/[address] Pozo * Further management per orthopedics LEFT-SIDED CHEST PAIN * This most likely is due to phrenic nerve irritation from the surgery completed yesterday * Patient does have probable infiltrate and atelectasis at the left base * Would treat for aspiration pneumonia as well as for atelectasis * Pain significantly improved since admission * Would follow clinically. At this point I do not believe that further studies are warranted DVT PROPHYLAXIS * No chemical prophylaxis secondary to recent shoulder surgery yesterday * We'll encourage ambulation in the hallways * Further management per hospitalist team Thank you very much for including us in the care of this patient. We will sign off at this time. Please feel free to reconsult as needed. Please refer to Dr. Smith's addendum for any further recommendations.
--- NOTE | 2017-05-21 11:03 | Pharmacy Progress Note ---
Glycemic Control Intl Consult Date of Service May 21, 2017. Scope Glycemic Pharmacist consulted by Dr Correa on 05/20/17 for glycemic control and to write orders per [facility] inpatient glycemic control protocol. Objective Weight (Kilograms): 94.500 Accuchecks BSG (last 24hrs): Test 05/20/17 19:00 05/20/17 23:25 05/21/17 03:52 05/21/17 04:16 Random Glucose 278 mg/dl (70-99) 179 mg/dl (70-99) Bedside Glucose 267 mg/dl (70-99) 165 mg/dl (70-99) Test 05/21/17 08:52 Bedside Glucose 167 mg/dl (70-99) Laboratory Data (last 24hrs) Test 05/20/17 19:00 05/20/17 19:11 05/21/17 03:52 Anion Gap 8.0 mmol/L 20.0 mmol/L 7.0 mmol/L BUN/Creatinine Ratio 20.8 23.6 Blood Urea Nitrogen 23 mg/dl 22 mg/dl Creatinine 1.10 mg/dl 0.92 mg/dl Potassium Level 4.6 mmol/L 4.1 mmol/L Sodium Level 134 mmol/L 134 mmol/L White Blood Count 7.42 K/uL 9.63 K/uL Red Blood Count 5.96 M/uL Hemoglobin 16.5 g/dL Hematocrit 49.3 % Mean Corpuscular Volume 82.7 fL Mean Corpuscular Hemoglobin 27.7 pg Mean Corpuscular Hemoglobin Concent 33.5 g/dl Platelet Count 182 K/uL Mean Platelet Volume 10.6 fL Neutrophils (%) (Auto) 84.5 % Lymphocytes (%) (Auto) 13.3 % Monocytes (%) (Auto) 1.3 % Eosinophils (%) (Auto) 0.1 % Basophils (%) (Auto) 0.3 % Neutrophils # (Auto) 6.26 K/uL Lymphocytes # (Auto) 0.99 K/uL Monocytes # (Auto) 0.10 K/uL Eosinophils # (Auto) 0.01 K/uL Basophils # (Auto) 0.02 K/uL Hemoglobin A1c 9.0 % HbA1c Test 05/21/17 03:52 Hemoglobin A1c 9.0 % (4.5-5.6) H Recent Pertinent Medications Outpatient Anti-diabetic Regimen: * Jardiance 10mg PO daily * Metformin 1000mg PO BID * A1c = 9.0% 05/21/17 Risk Factors for Insulin Resistance: * Infection: on ceftriaxone/azithromycin for pna * IVF: NS @ 80mL/hr * Recent Surgery: POD #1 s/p outpatient surgery for rotator cuff repair * Steroids: unsure if steroids given javed-op yesterday? * Diet: Type 2 diabetic diet Assessment & Plan ASSESSMENT: * Mr Leblanc is a 66yo diabetic male admitted with chest pain/pneumonia after returning home from an outpatient surgery yesterday (POD #1 rotator cuff repair) . * Patient was hyperglycemic on admission either 2/2 steroid administration pre- op or d/t stress/infection. * Patient was initiated on a basal/bolus insulin regimen last evening and BSGs are improved this morning. Will continue SQ insulin during admission. PLAN FOR INPATIENT GLYCEMIC CONTROL: * Holding outpatient oral diabetes medications * Basal insulin with LANTUS 20 units SQ x1 dose last evening, then 15 units daily * will titrate as needed * Correctional Insulin with NOVOLOG per scale ACHS or Q6hrs while NPO * Goal Range: Low 100 mg/dL - High 140 mg/dL * Correction Factor: 20 mg/dL/unit * Nutritional / Prandial insulin per carb ratio of 1 unit per 8 grams CHO consumed DISCHARGE PLANNING: * Patient's current A1c (9.0%) does not reflect adequate glycemic control in a 66yo. Would prefer A1c <7.0%. * May consider adding insulin on discharge vs. optimizing PO med options. * May consider consulting CDE to provide pt education. * Please note that the plan above was derived based on current level of insulin resistance and hospital stress. These recommendations are appropriate for inpatient admission only. Plan of care upon discharge will need to be reassessed to avoid potential outpatient hypo/hyperglycemia. Thank you.
[2017-05-21 11:22] VITALS: BP 130/46; PULSE 53; TEMP 36.6; O2SAT 96
[2017-05-21 11:40] VITALS: O2SAT 96
--- NOTE | 2017-05-21 12:11 | CARDIOLOGY CONSULTATION ---
DATE OF CONSULTATION: 05/21/2017 DATE OF CONSULTATION: 05/21/2017 CONSULTATION REQUESTED BY: Dr. Murphy. REASON FOR CONSULTATION: Chest pain. HISTORY OF PRESENT ILLNESS: Mr. Leblanc is a very pleasant 66-year-old gentleman who is postop day #1 from left shoulder surgery. He presented to [facility] on the evening of 05/20/2017 with a complaint of chest discomfort. The patient states he had a left rotator cuff surgery with Dr. Pozo is [place] on the as an outpatient. As soon as he got home and laid down after about an hour he started feeling a little short of breath and had some chest discomfort. He states that this seemed to happen once the nerve block wore off. He became concerned and came into the Emergency Department. In the Emergency Department, an EKG showed old infarct with no signs of any acute ischemia and he was found to have left lower lobe atelectasis and likely superimposed pneumonia. Upon further questioning, the patient states that his pain would only occur with deep inhalation. He states that when he inhaled deeply he would feel a dull achy sensation in his lower left sternal area. This was not reproduced with activity. He states he was not having any symptoms leading up to his surgery either and he states that this chest discomfort is in no way similar to the previous chest discomfort he had prior to his stent placements. Otherwise he has been feeling well and follows with his primary siebel developer, Dr. Muñoz in [place]. PAST SURGICAL HISTORY: 1. PTCA of unknown vessels x2 in 2005 followed with another stent placement in the setting of a non-STEMI in February 2016. Again, unknown site all done at [facility]. 2. Postop day #1 for outpatient left rotator cuff repair. MEDICAL ILLNESSES: 1. Coronary artery disease. 2. Diabetes. 3. Hypertension. 4. Hyperlipidemia. 5. Dorman's esophagitis. FAMILY HISTORY: Noncontributory. SOCIAL HISTORY: The patient denies any alcohol, tobacco or recreational drug use. He is and lives at home with his . ALLERGIES: 1. HORSE SERUM. 2. IODINE. 3. MOLD AND SMUTS. 4. PECAN. 5. POISON PADMINI. 6. POTATO. 7. WALNUT. 8. MORPHINE. 9. . 10. PEANUTS. MEDICATIONS AN OUTPATIENT: 1. Aspirin 81 mg daily. 2. Coreg 3.125 mg b.i.d. 3. Zocor 10 mg daily. 4. Verapamil 120 mg daily. 5. Flomax daily. 6. Ranitidine b.i.d. 7. Protonix b.i.d. 8. Glucophage b.i.d. 9. Jardiance daily. PHYSICAL EXAMINATION: VITALS: Temperature 36.6, pulse 53, respiratory rate 12, blood pressure 130/46. GENERAL: Awake, alert, oriented x3 in no acute distress. HEAD, EYES, EARS, NOSE, AND THROAT: Normocephalic, atraumatic. Pupils equal, round, and reactive to light and accommodation. Extraocular muscles intact. Anicteric sclerae. Moist mucous membranes. NECK: No JVD, no bruit. CARDIOVASCULAR: Regular. Positive S4. Normal S1 and S2. No S3. No murmurs or rubs. PULMONARY: Clear to auscultation bilaterally. No rales, rhonchi or wheezing with decreased breath sounds in the left base. ABDOMEN: Bowel sounds x4, soft. No rebound, guarding, tenderness. No organomegaly. EXTREMITIES: No clubbing, cyanosis or edema. Left shoulder is in a sling. +2 pedal pulses bilaterally. SKIN: Warm and dry. TEST RESULTS OF SIGNIFICANCE: Troponin negative x3. A 2D echocardiogram performed in the Emergency Department independently reviewed at this time shows normal sinus rhythm at 65 beats per minute, possible old inferior infarct. No signs of active ischemia, no previous studies available for comparison. IMPRESSION: 1. Pleuritic chest pain. 2. Pneumonia with atelectasis. 3. Postop day #1 from left shoulder surgery. 4. History of coronary artery disease. RECOMMENDATIONS: It was my pleasure to see Mr. Leblanc in consultation today. The patient and his were counseled that given the fact that his pain is pleuritic in nature and he does have a documented pneumonia with atelectasis that I believe that is most likely the cause of his pain. This also could be worsened by referred pain from his recent shoulder surgery, but I do not see any objective signs of ischemia and I do not see any cardiac component to his chest discomfort. So a 2D echocardiogram has already been ordered and performed, the full report to follow, but no other testing is necessary at this time. I would recommend the patient follow up with his primary siebel developer as scheduled, otherwise it is okay to discontinue telemetry from a cardiac standpoint and discharge the patient to home. ZACH
[2017-05-21] MEDS ORDERED: AMOX1TAB42 PO (14:09)
--- NOTE | 2017-05-21 14:35 | Progress Note ---
Internal Med Progress Note Date of Service: May 21, 2017. Provider Documentation: SUBJECTIVE: Patient was seen and examined at bedside. He reports pain of left chest when taking deep breaths. Patient otherwise ambulatory and breathing on room air. OBJECTIVE: General Appearance: no apparent distress Head: normocephalic, atraumatic Eyes: normal inspection ENT: normal ENT inspection Neck: thyroid normal, no JVD, no carotid bruits, trachea midline Respiratory/Chest: chest non-tender, lungs clear Cardiovascular: regular rate, rhythm, no edema Abdomen/GI: normal bowel sounds, non tender, soft Extremities/Musculoskelatal: normal inspection, normal capillary refill, no pedal edema, left shoulder in bandage and wrap for recent arm surgery , on arm sling Neurologic/Psych: alert, normal mood/affect, oriented x 3 ASSESSMENT & PLAN: RECENT ROTATOR CUFF REPAIR SURGERY: -Patient to follow up with the physician who performed the surgery History of Coronary Artery Disease -Patient was evaluated whether pain with taking deep breaths was related to history of coronary artery disease -Troponin negative x 3 -Echocardiogram was performed on 05/21/17 and read by [facility] affiliated physician Dr. Macdonald - full report pending -As per Dr. Macdonald no "objective signs of ischemia" and no "cardiac component to his chest discomfort." SOB /LEFT LOWER LOBE PNEUMONIA/DENSE CONSOLIDATION : -CTA chest -CTA of chest -shows no evidence of PE , There is volume loss and dense consolidative change identified at the left lung base. -Was started empirically on antibiotics with Rocephin /Zithromax -Patient was evaluated by pulmonary service and recommended to be on 7 day antibiotic coverage in case of aspiration pneumonia. Patient given prescription of Augmentin 875 mg BID for 7 days. -other possibility is atelectasis Diabetes with hyperglycemia : -Patient can continue home medications upon discharge History of LOCKETT'S ESOPHAGITIS -cont PPI and Ranidine 150 mg BID Discharge to Home Vital Signs: Date Time Temp Pulse Resp B/P (MAP) Pulse Ox O2 Delivery O2 Flow Rate FiO2 05/21/17 12:00 Room Air 05/21/17 11:40 96 Room Air 05/21/17 11:22 36.6 53 14 130/46 (74) 96 Room Air 05/21/17 08:30 94 Room Air 05/21/17 07:21 36.7 66 16 142/75 (97) 94 Room Air 05/21/17 05:17 36.7 66 20 147/84 (105) 94 Room Air 05/21/17 04:00 Room Air 05/21/17 00:00 Room Air 05/20/17 22:19 37.0 80 18 142/87 Room Air 05/20/17 20:53 72 18 142/80 99 Room Air 05/20/17 19:18 70 05/20/17 19:00 69 16 144/86 95 Room Air 05/20/17 18:59 Room Air 05/20/17 18:59 95 Room Air 05/20/17 17:14 96 Room Air 05/20/17 17:09 36.8 73 18 165/95 96 Room Air Lab Results: Results Past 24 Hours Test 05/20/17 19:00 05/20/17 19:11 05/20/17 23:14 05/20/17 23:25 Range/Units White Blood Count 7.42 4.8-10.8 K/uL Red Blood Count 5.96 4.7-6.1 M/uL Hemoglobin 16.5 14.0-18.0 g/dL Hematocrit 49.3 42-52 % Mean Corpuscular Volume 82.7 80-100 fL Mean Corpuscular Hemoglobin 27.7 25-34 pg Mean Corpuscular Hemoglobin Concent 33.5 32-36 g/dl Platelet Count 182 130-400 K/uL Mean Platelet Volume 10.6 7.4-10.4 fL Neutrophils (%) (Auto) 84.5 % Lymphocytes (%) (Auto) 13.3 % Monocytes (%) (Auto) 1.3 % Eosinophils (%) (Auto) 0.1 % Basophils (%) (Auto) 0.3 % Neutrophils # (Auto) 6.26 1.4-6.5 K/uL Lymphocytes # (Auto) 0.99 1.2-3.4 K/uL Monocytes # (Auto) 0.10 0.11-0.59 K/uL Eosinophils # (Auto) 0.01 0-0.5 K/uL Basophils # (Auto) 0.02 0-0.2 K/uL RDW Standard Deviation 43.6 36.4-46.3 fL RDW Coefficient of Variation 14.4 11.5-14.5 % Immature Granulocyte % (Auto) 0.5 % Immature Granulocyte # (Auto) 0.04 0.00-0.02 K/uL Prothrombin Time 10.5 9.0-12.0 SECONDS Prothromb Time International Ratio 1.0 0.9-1.1 Activated Partial Thromboplast Time 27.5 21.0-31.0 SECONDS Partial Thromboplastin Ratio 1.1 Sodium Level 134 136-145 mmol/L Potassium Level 4.6 3.5-5.1 mmol/L Chloride Level 101 98-107 mmol/L Carbon Dioxide Level 25 21-32 mmol/L Anion Gap 8.0 20.0 16-25 mmol/L Blood Urea Nitrogen 23 7-18 mg/dl Creatinine 1.10 0.60-1.40 mg/dl Est Creatinine Clear Calc Drug Dose 77.5 ml/min Estimated GFR () 81.8 Estimated GFR (Non- 70.6 BUN/Creatinine Ratio 20.8 10-20 Random Glucose 278 70-99 mg/dl Calcium Level 9.1 8.5-10.1 mg/dl Troponin I < 0.015 0-0.045 ng/ml Bedside Hemoglobin 18.0 14.0-18.0 g/dl Bedside Hematocrit 53 42-52 % Bedside Sodium 138 135-144 mEq/L Bedside Potassium 4.7 3.3-5.0 mEq/L Bedside Chloride 100 101-112 mEq/L Bedside Total CO2 23 24-31 mEq/l Bedside Blood Urea Nitrogen 27 7-18 mg/dl Bedside Creatinine 0.8 0.6-1.3 mg/dl Bedside Glucose (other) 294 70-99 mg/dl Bedside Ionized Calcium (Xiao) 1.18 1.12-1.32 mmol/l Influenza Type A Antigen Neg for Influ A NEG Influenza Type B Antigen Neg for Influ B NEG Bedside Glucose 267 70-99 mg/dl Test 05/21/17 03:52 05/21/17 04:16 05/21/17 08:52 05/21/17 09:51 Range/Units White Blood Count 9.63 4.8-10.8 K/uL Red Blood Count 5.28 4.7-6.1 M/uL Hemoglobin 14.4 14.0-18.0 g/dL Hematocrit 43.6 42-52 % Mean Corpuscular Volume 82.6 80-100 fL Mean Corpuscular Hemoglobin 27.3 25-34 pg Mean Corpuscular Hemoglobin Concent 33.0 32-36 g/dl RDW Standard Deviation 42.6 36.4-46.3 fL RDW Coefficient of Variation 14.3 11.5-14.5 % Platelet Count 170 130-400 K/uL Mean Platelet Volume 9.7 7.4-10.4 fL Sodium Level 134 136-145 mmol/L Potassium Level 4.1 3.5-5.1 mmol/L Chloride Level 102 98-107 mmol/L Carbon Dioxide Level 25 21-32 mmol/L Anion Gap 7.0 3-11 mmol/L Blood Urea Nitrogen 22 7-18 mg/dl Creatinine 0.92 0.60-1.40 mg/dl Est Creatinine Clear Calc Drug Dose 92.7 ml/min Estimated GFR () 101.5 Estimated GFR (Non- 87.6 BUN/Creatinine Ratio 23.6 10-20 Random Glucose 179 70-99 mg/dl Estimated Average Glucose 212 mg/dl Hemoglobin A1c 9.0 4.5-5.6 % Calcium Level 8.3 8.5-10.1 mg/dl Troponin I < 0.015 < 0.015 0-0.045 ng/ml Bedside Glucose 165 167 70-99 mg/dl Test 05/21/17 11:28 Range/Units Bedside Glucose 116 70-99 mg/dl Microbiology Results 05/20/17 Blood Culture, Received Pending 05/20/17 Blood Culture, Received Pending
--- NOTE | 2017-05-21 14:49 | Orthopedic Progress Note ---
Orthopedic Progress Note Date of Service May 21, 2017. Subjective Reports: feeling well, Denies: complaints Additional Notes: 66 yo wm who underwent Left shoulder arthroscopy yesterday by Dr Pozo. Pt developed SOB and question of left chest wall pain post op at home. They called [facility] and was directed to go to the ER. Pt was seen and thusly admitted with possible pneumonia vs mucus plugging. His is with him and there was a question of him possibly aspirating at some time. At this point, the patient states that he is feeling well and is hoping to go home. No overt complaints of the shoulder currently. Objective dressing C/D/I, CMS intact Wearing sling. Date Time Temp Pulse Resp B/P (MAP) Pulse Ox O2 Delivery O2 Flow Rate FiO2 05/21/17 12:00 Room Air 05/21/17 11:40 96 Room Air 05/21/17 11:22 36.6 53 14 130/46 (74) 96 Room Air 05/21/17 08:30 94 Room Air 05/21/17 07:21 36.7 66 16 142/75 (97) 94 Room Air 05/21/17 05:17 36.7 66 20 147/84 (105) 94 Room Air 05/21/17 04:00 Room Air 05/21/17 00:00 Room Air 05/20/17 22:19 37.0 80 18 142/87 Room Air 05/20/17 20:53 72 18 142/80 99 Room Air 05/20/17 19:18 70 05/20/17 19:00 69 16 144/86 95 Room Air 05/20/17 18:59 Room Air 05/20/17 18:59 95 Room Air 05/20/17 17:14 96 Room Air 05/20/17 17:09 36.8 73 18 165/95 96 Room Air Laboratory Results 24 Hours: Test 05/20/17 19:00 05/21/17 03:52 White Blood Count 7.42 K/uL Red Blood Count 5.96 M/uL Hemoglobin 16.5 g/dL 14.4 g/dL Hematocrit 49.3 % 43.6 % Mean Corpuscular Volume 82.7 fL Mean Corpuscular Hemoglobin 27.7 pg Mean Corpuscular Hemoglobin Concent 33.5 g/dl Platelet Count 182 K/uL Mean Platelet Volume 10.6 fL Neutrophils (%) (Auto) 84.5 % Lymphocytes (%) (Auto) 13.3 % Monocytes (%) (Auto) 1.3 % Eosinophils (%) (Auto) 0.1 % Basophils (%) (Auto) 0.3 % Neutrophils # (Auto) 6.26 K/uL Lymphocytes # (Auto) 0.99 K/uL Monocytes # (Auto) 0.10 K/uL Eosinophils # (Auto) 0.01 K/uL Basophils # (Auto) 0.02 K/uL Prothromb Time International Ratio 1.0 Prothrombin Time 10.5 SECONDS Assessment & Plan Assessment: POD 1 s/p Arthroscopy Left Shoulder ; subacromial decompression, distal clavicle excision (NO RTC TEAR or REPAIR) I have spoken to Rigoberto BLACKMON from Dr Pozo' office . No repair needed for the RTC. Pt can be ROM of he shoulder has tolerated. Sling for comfort or travel. Instructed pt on pendulum exercises. He states he has exercise instructions at home he will follow and start physical therapy next week.
--- NOTE | 2017-05-21 14:50 | Discharge Instructions ---
Discharge Instructions Date of Service May 21, 2017. Admission Reason for Admission: Chest Pain, Pneumonia Discharge Discharge Diagnosis / Problem: non cardiac chest pain, referred shoulder pain, aspiration pneumonia Discharge Goals Goal(s): Decrease discomfort, Improve function Activity Recommendations Activity Limitations: per Instructions/Follow-up section Shower/Bathe: no limitations . Instructions / Follow-Up Instructions / Follow-Up RECENT ROTATOR CUFF REPAIR SURGERY: -Patient to follow up with the physician who performed the surgery History of Coronary Artery Disease -Patient was evaluated whether pain with taking deep breaths was related to history of coronary artery disease -Troponin negative x 3 -Echocardiogram was performed on 05/21/17 and read by [facility] affiliated physician Dr. Macdonald - full report pending -As per Dr. Macdonald no "objective signs of ischemia" and no "cardiac component to his chest discomfort." SOB /LEFT LOWER LOBE PNEUMONIA/DENSE CONSOLIDATION : -CTA chest -CTA of chest -shows no evidence of PE , There is volume loss and dense consolidative change identified at the left lung base. -Was started empirically on antibiotics with Rocephin /Zithromax -Patient was evaluated by pulmonary service and recommended to be on 7 day antibiotic coverage in case of aspiration pneumonia. Patient given prescription of Augmentin 875 mg BID for 7 days. -other possibility is atelectasis Diabetes with hyperglycemia : -Patient can continue home medications upon discharge History of LOCKETT'S ESOPHAGITIS -cont PPI and Ranidine 150 mg BID Discharge to Home Current Hospital Diet Patient's current hospital diet: Diabetes Type 2 Diet Discharge Diet Recommended Diet: Diabetes Type 2 Diet Pending Studies Studies pending at discharge: no Laboratory Results 05/21/17 03:52 05/21/17 03:52 Test 05/20/17 19:00 05/20/17 19:11 05/20/17 23:14 05/21/17 03:52 Immature Granulocyte % (Auto) 0.5 % White Blood Count 7.42 K/uL (4.8-10.8) Red Blood Count 5.96 M/uL (4.7-6.1) 5.28 M/uL (4.7-6.1) Hemoglobin 16.5 g/dL (14.0-18.0) Hematocrit 49.3 % (42-52) Mean Corpuscular Volume 82.7 fL (80-100) 82.6 fL (80-100) Mean Corpuscular Hemoglobin 27.7 pg (25-34) 27.3 pg (25-34) Mean Corpuscular Hemoglobin Concent 33.5 g/dl (32-36) 33.0 g/dl (32-36) Platelet Count 182 K/uL (130-400) Mean Platelet Volume 10.6 fL (7.4-10.4) 9.7 fL (7.4-10.4) Neutrophils (%) (Auto) 84.5 % Lymphocytes (%) (Auto) 13.3 % Monocytes (%) (Auto) 1.3 % Eosinophils (%) (Auto) 0.1 % Basophils (%) (Auto) 0.3 % Neutrophils # (Auto) 6.26 K/uL (1.4-6.5) Lymphocytes # (Auto) 0.99 K/uL (1.2-3.4) Monocytes # (Auto) 0.10 K/uL (0.11-0.59) Eosinophils # (Auto) 0.01 K/uL (0-0.5) Basophils # (Auto) 0.02 K/uL (0-0.2) Immature Granulocyte # (Auto) 0.04 K/uL (0.00-0.02) Prothrombin Time 10.5 SECONDS (9.0-12.0) Prothromb Time International Ratio 1.0 (0.9-1.1) Activated Partial Thromboplast Time 27.5 SECONDS (21.0-31.0) Partial Thromboplastin Ratio 1.1 Bedside Hemoglobin 18.0 g/dl (14.0-18.0) Bedside Hematocrit 53 % (42-52) Bedside Sodium 138 mEq/L (135-144) Bedside Potassium 4.7 mEq/L (3.3-5.0) Bedside Chloride 100 mEq/L (101-112) Bedside Total CO2 23 mEq/l (24-31) Bedside Blood Urea Nitrogen 27 mg/dl (7-18) Bedside Creatinine 0.8 mg/dl (0.6-1.3) Bedside Glucose (other) 294 mg/dl (70-99) Bedside Ionized Calcium (Xiao) 1.18 mmol/l (1.12-1.32) Influenza Type A Antigen Neg for Influ A (NEG) Influenza Type B Antigen Neg for Influ B (NEG) RDW Standard Deviation 42.6 fL (36.4-46.3) RDW Coefficient of Variation 14.3 % (11.5-14.5) Anion Gap 7.0 mmol/L (3-11) Est Creatinine Clear Calc Drug Dose 92.7 ml/min Estimated GFR () 101.5 Estimated GFR (Non- 87.6 BUN/Creatinine Ratio 23.6 (10-20) Estimated Average Glucose 212 mg/dl Hemoglobin A1c 9.0 % (4.5-5.6) Calcium Level 8.3 mg/dl (8.5-10.1) Test 05/21/17 09:51 05/21/17 11:28 Troponin I < 0.015 ng/ml (0-0.045) Bedside Glucose 116 mg/dl (70-99) Date/Time Source Procedure Growth Status 05/20/17 21:00 Blood Blood Culture Pending Received Hemoglobin A1c Test 05/21/17 03:52 Range/Units Estimated Average Glucose 212 mg/dl Hemoglobin A1c 9.0 H 4.5-5.6 % Medical Emergencies . Who to Call and When: Medical Emergencies: If at any time you feel your situation is an emergency, please call 911 immediately. . Non-Emergent Contact Non-Emergency issues call your: Primary Care Provider . . "Provider Documentation" section prepared by Kostas Murphy. . VTE Core Measure Inpt VTE Proph given/why not?: Unfractionated heparin SQ
--- NOTE | 2017-05-21 14:51 | Discharge Summary ---
Discharge Summary Date of Service May 21, 2017. Discharge Summary Admission Date: May 20, 2017 at 21:02 Discharge Date: May 21, 2017 Discharge Disposition: Home Principal Diagnosis: non cardiac chest pain, referred left shoulder pain from recent rotator cuff repair, aspiration pneumonia, atelectasis from recent surgery Consultations: Cardiology, Pulmonary Medication Reconciliation New Medications: Amoxicillin & Pot Clavulanate (Amoxicillin/Clavulanate P) 1 Tab Tab 1 TAB PO BID for 7 Days, #14 TAB Continued Medications: Carvedilol (Carvedilol) 3.125 Mg Tab 3.125 MG PO BID Empagliflozin (Jardiance) 10 Mg Tab 10 MG PO DAILY Hydrocodone/Acetaminophen 5MG/325MG ([place] 5MG/325MG) Tab 1 TABLET PO Q4-6HRS PRN for Pain, TAB PRN PAIN Loperamide Hcl (Imodium) 2 Mg Cap 2 MG PO DAILY, CAP Magnesium (Magnesium 250 mg) 1 Tab Tab 500 MG PO DAILY PRN for LOW MAG Metformin Hcl (Glucophage) 1,000 Mg Tab 1000 MG PO BID Methocarbamol (Methocarbamol) 500 Mg Tab 500 MG PO TID PRN for Muscle Spasms Pantoprazole Sodium (Protonix) 40 Mg Tab 40 MG PO BID, #30 TAB Ranitidine HCl (Ranitidine HCl) 150 Mg Tab 150 MG PO BID TAKE 1 TAB @ SUPPER & 1 TAB HS Simvastatin (Zocor) 10 Mg Tab 10 MG PO DAILY, TAB Tamsulosin Hcl (Flomax) 0.4 Mg Cap 0.4 MG PO DAILY, CAP Verapamil (Calan) 120 Mg Tab 120 MG PO DAILY, TAB Admission Information HPI (per Admitting provider): this is a 66 yo M with past medical hx of CAD s/p PTCA x2 ( October 2005 , November 2005 ) , NSTEMI in Feb 2016 had stent placement -all of them are done at [facility] follows with Cardiology Dr Muñoz pt;s other medical problems includes Type 2 DM , HTN , Hyperlipidemia , Lockett' s esophagitis Pt sustained injury to left shoulder on May 05 2017 after a fall , seen by [facility] underwent Left shoulder rotator cuff repair today by Dr Pozo in office , pt mentions the procedure was for approx 45 mins, did well at post op recovery was discharged after arriving home approx 1:30 pm -developed sudden onset of SOB , unable to take deep breath , symptom worse with lying flat felt dizzy and lightheaded , no syncope , mentions had sharp pain on left chest wall but thinks possible radiation form left shoulder surgical pain on Arrival to ER -pt had stable vitals, adequate oxygenation in room air CTA of chest -shows no evidence of PE , There is volume loss and dense consolidative change identified at the left lung base. pt denies of any fever or chills, no cough , no headache or body ache had no episode of SOB /RAINEY until today afternoon during my evaluation in ER -pt appears to be comfortable , no respiratory distress noted no chest pain still have subjective feeling of unable to take deep breath , positive orthopnea Physical Exam (per Admitting): General Appearance: no apparent distress Head: normocephalic, atraumatic Eyes: normal inspection ENT: normal ENT inspection Neck: thyroid normal, no JVD, no carotid bruits, trachea midline Respiratory/Chest: chest non-tender, lungs clear, + decreased breath sounds (poor inspiratory effort , no wheeze or rales ) Cardiovascular: regular rate, rhythm, no edema Abdomen/GI: normal bowel sounds, non tender, soft Extremities/Musculoskelatal: normal inspection, normal capillary refill, no pedal edema, + pertinent finding (left shoulder in bandage and wrap for recent arm surgery , on arm sling ) Neurologic/Psych: no motor/sensory deficits, alert, normal mood/affect, oriented x 3 Hospital Course RECENT ROTATOR CUFF REPAIR SURGERY: -Patient to follow up with the physician who performed the surgery History of Coronary Artery Disease -Patient was evaluated whether pain with taking deep breaths was related to history of coronary artery disease -Troponin negative x 3 -Echocardiogram was performed on 05/21/17 and read by [facility] affiliated physician Dr. Macdonald - full report pending -As per Dr. Macdonald no "objective signs of ischemia" and no "cardiac component to his chest discomfort." SOB /LEFT LOWER LOBE PNEUMONIA/DENSE CONSOLIDATION : -CTA chest -CTA of chest -shows no evidence of PE , There is volume loss and dense consolidative change identified at the left lung base. -Was started empirically on antibiotics with Rocephin /Zithromax -Patient was evaluated by pulmonary service and recommended to be on 7 day antibiotic coverage in case of aspiration pneumonia. Patient given prescription of Augmentin 875 mg BID for 7 days. -other possibility is atelectasis Diabetes with hyperglycemia : -Patient can continue home medications upon discharge History of LOCKETT'S ESOPHAGITIS -cont PPI and Ranidine 150 mg BID Discharge to Home Total time spent on discharge = 60 minutes This includes examination of the patient, discharge planning, medication reconciliation, and communication with other providers. Discharge Instructions see above
[2017-05-21 15:11] VITALS: BP 130/46; PULSE 53; TEMP 36.6; O2SAT 96
[2017-05-21 15:41] VITALS: Ht 175.3 cm; Wt 94.5 kg
[2017-05-21] MEDS ORDERED: AZITHROMYCIN IV 500 MG in DEXTROSE 5% 250ML 250 ML IV SCH (21:00)
[2017-05-21] MEDS ORDERED: CEFTRIAXONE SOD INJ 1 GM in DEXTROSE 5% ADD-VANTAGE 50ML 50 ML IV SCH (21:00)
--- NOTE | 2017-05-22 10:20 | ECHOCARDIOGRAM REPORT ---
*NOTICE TO RECEIVING LIBERTARIAN AGENCY This information is strictly Confidential and protected under [place] law. [place] law prohibits you from making any further disclosure of this information unless further disclosure is expressly permitted by the written consent of the person to whom it pertains or is authorized by law. A general authorization for the release of medical or other information is not sufficient for this purpose. Hospital accepts no responsibility if the information is made available to any other person, INCLUDING THE PATIENT. Interpretation Summary * Name: JAYLEN ASH Study Date: 05/21/2017 07:26 AM BP: 147/84 mmHg * Patient Location: [facility]\S\N280\S\2 HR: 54 * : 1950 (M/d/yyyy) Gender: Male Height: 69 in * Age: 66 yrs Ethnicity: [place] Weight: 211 lb * Ordering Physician: Lucila Correa * Referring Physician: Felice Pozo D.O. * Performed By: Mara Leone RCS * * Reason For Study: CHEST PAIN * BSA: 2.1 m2 * -- Conclusions -- * Normal LV chamber size with mild concentric LVH. * Normal LV systolic function, EF 60-65%. * No segmental left ventricular wall motion abnormalities are noted. * Grade II diastolic dysfunction. * No significant valvular pathology. Procedure Details * A complete two-dimensional transthoracic echocardiogram was performed (2D, M-mode, Doppler and color flow Doppler). * A contrast injection of Definity was performed to improve assessment of LV function. * Contrast was injected into an intravenous site in the right arm. * One vial of Definity ultrasound contrast was diluted in normal saline to a total volume of 10 ml. A total of '2' ml of solution was administered during imaging. * Lot # [id number] of Definity utilized for procedure. * Expiration date MAY 15. * The attending nurse who injected the contrast agent was PAULINE NOLAN RN. Left Ventricle * The left ventricle is normal in size. * There is mild concentric left ventricular hypertrophy. * Left ventricular systolic function is normal. * No segmental left ventricular wall motion abnormalities are noted. * Ejection Fraction = 60-65%. * The left ventricular wall motion is normal. Right Ventricle * The right ventricular cavity size is normal (basal dimension <4.2 cm in right ventricular apical 4-chamber view). * The right ventricular systolic function is normal as assessed by tricuspid annular plane systolic excursion (TAPSE) (normal >1.5 cm). Atria * The left atrial size is normal. * Right atrial size is normal. * No ASD detected; PFO is not assessed. Mitral Valve * The mitral valve is normal in structure and function. Tricuspid Valve * The tricuspid valve is normal in structure and function. Aortic Valve * The aortic valve is normal in structure and function. Pulmonic Valve * The pulmonary valve is not well seen, but the Doppler examination is normal without significant regurgitation or stenosis. Great Vessels * The aortic root is normal size. Pericardium/Pleural * There is no pericardial effusion. Left Ventricular Diastolic Function * Diastolic dysfunction, Grade II (pseudonormalization pattern). MMode 2D Measurements and Calculations IVSd 1.2 cm IVSs 1.3 cm LVIDd 4.0 cm LVIDs 2.8 cm LVPWd 1.1 cm LVPWs 1.2 cm IVS/LVPW 1.1 FS 30.3 % EDV(Teich) 69.3 ml ESV(Teich) 29.0 ml EF(Teich) 58.2 % EDV(cubed) 63.2 ml ESV(cubed) 21.4 ml EF(cubed) 66.1 % % IVS thick 11.9 % % LVPW thick 11.5 % LV mass(C)d 154.0 grams LV mass(C)dI 72.9 grams/m\S\2 LV mass(C)s 109.6 grams LV mass(C)sI 51.9 grams/m\S\2 SV(Teich) 40.4 ml SI(Teich) 19.1 ml/m\S\2 SV(cubed) 41.8 ml SI(cubed) 19.8 ml/m\S\2 Ao root diam 2.5 cm Ao root area 4.9 cm\S\2 LA dimension 3.6 cm LA/Ao 1.4 LVOT diam 2.0 cm LVOT area 3.0 cm\S\2 Doppler Measurements and Calculations MV E max raquel 79.3 cm/sec MV A max raquel 70.6 cm/sec MV E/A 1.1 MV P1/2t max raquel 72.5 cm/sec MV P1/2t 100.2 msec MVA(P1/2t) 2.2 cm\S\2 MV dec slope 211.9 cm/sec\S\2 MV dec time 0.27 sec Ao V2 max 111.8 cm/sec Ao max PG 5.0 mmHg Ao max PG (full) 0.32 mmHg ESPERANZA(V,A) 2.9 cm\S\2 ESPERANZA(V,D) 2.9 cm\S\2 LV V1 max PG 4.7 mmHg LV V1 max 108.1 cm/sec PA V2 max 75.9 cm/sec PA max PG 2.3 mmHg PI max raquel 157.9 cm/sec PI max PG 10.0 mmHg PI dec slope 171.7 cm/sec\S\2 PI P1/2t 269.3 msec
== END 2017-05-21 16:08 | disposition home or self-care (01) ==
LOC: C.EDB 17:07 → C.MED 21:02 → ENRESERV 21:04 → EDBEDREQ 21:05
PROVIDERS: ADMIT Hospitalist; ATTEND Hospitalist
DX: J69.0 Pneumonitis due to inhalation of food and vomit (principal); J98.11 Atelectasis; J95.89 Other postprocedural complications and disorders of respiratory system, not elsewhere classified; R07.89 Other chest pain; I10 Essential (primary) hypertension; E11.65 Type 2 diabetes mellitus with hyperglycemia; N40.0 Benign prostatic hyperplasia without lower urinary tract symptoms; K22.70 Barrett's esophagus without dysplasia; E78.5 Hyperlipidemia, unspecified; Z79.84 Long term (current) use of oral hypoglycemic drugs; Z79.899 Other long term (current) drug therapy; I25.10 Atherosclerotic heart disease of native coronary artery without angina pectoris; Z95.5 Presence of coronary angioplasty implant and graft; I25.2 Old myocardial infarction; Z79.82 Long term (current) use of aspirin